=== PATIENT | male | born 1955 | race Caucasian/White ===

== ENCOUNTER → 2016-10-21 | Outpatient (CLI) | payer MEDICAID, OTHER ==
[2016-10-21 10:20] LABS: CHLORIDE,CL 107 mmol/L (98-110); SODIUM,NA 139 mmol/L (136-146)
== END ==
LOC: MW.CHFP 09:15
PROVIDERS: ATTEND Student in an Organized Health Care Education/Training Program
DX: R53.82 Chronic fatigue, unspecified (principal); D72.829 Elevated white blood cell count, unspecified
CPT/HCPCS: 36415; 80048; 84443; 85027

== ENCOUNTER 2017-05-23 16:50 | Emergency (ER) | payer MEDICAID ==
--- NOTE | 2017-05-23 17:13 | EDM.PDOC ---
ED HPI GENERAL MEDICAL PROBLEM - General Chief Complaint: Skin Complaint Stated Complaint: RT FOOT INFECTION Time Seen by Provider: 05/23/17 16:59 Source of Information: Reports: Patient History Limitations: Reports: No Limitations - History of Present Illness INITIAL COMMENTS - FREE TEXT/NARRATIVE: HISTORY AND PHYSICAL: History of present illness: Shouldn't is a 61-year-old male who presents to the emergency room with complaints of redness, swelling and pain at a lesion site to his right lower extremity. He states approximately 2 weeks ago he noticed a small scratch to his right lower extremity. He saw Dr. Jc shaihk on 05/12/2017 and was placed on Clobetsole Cream, to apply twice daily 7 days. The patient states that since that time the small scratch turned into an open sore with redness and swelling around the area. He denies any fever, chills, chest pain, shortness of breath abdominal pain, nausea, vomiting or diarrhea. Has no history of diabetes, neuropathy and denies any numbness or tingling to the lower extremity. Past medical history of hypertension, elevated cholesterol, cardiac stent for a believed MD (patient is unsure if he had a heart attack "or what") Review of systems: As per history of present illness and below otherwise all systems reviewed and negative. Past medical history: As per history of present illness and as reviewed below otherwise noncontributory. Surgical history: As per history of present illness and as reviewed below otherwise noncontributory. Social history: No reported history of drug or alcohol abuse. Family history: As per history of present illness and as reviewed below otherwise noncontributory. Physical exam: Gen.: Well-developed and well-nourished 61-year-old male. Alert and oriented. Appears in no acute distress and is nontoxic appearing. HEENT: Atraumatic, normocephalic, pupils reactive, negative for conjunctival pallor or scleral icterus, mucous membranes moist, throat clear, neck supple, nontender, trachea midline. Lungs: Clear to auscultation, breath sounds equal bilaterally, chest nontender. Heart: S1S2, regular, negative for clicks, rubs, or JVD. Abdomen: Soft, nondistended, nontender. Negative for masses or hepatosplenomegaly. Negative for costovertebral tenderness. Pelvis: Stable nontender. Genitourinary: Deferred. Rectal: Deferred. Extremities: Atraumatic, +2 pitting edema to the right lower extremity, starting at the mid staley down to his foot. He does have a linear sore which has yellow macerated drainage to the top of the measuring approximately 2 cm. Small white blister like satellite lesions noted to the 5 o'clock position. Erythema noted from mid staley down to the top of the foot. This is anterior and is not circumferential. Strong pedal pulse noted. Does appear to have a large patch of psoriasis to the right ankle. +CMS. Neurovascular unremarkable. Neuro: Awake, alert, oriented. Cranial nerves II through XII unremarkable. Cerebellum unremarkable. Motor and sensory unremarkable throughout. Exam nonfocal. Wound culture was obtained and sent to lab. The wound has been outlined with permanent marker to identify the cellulitis border. Signs and symptoms were reviewed with the patient, what to monitor for to prompt him to return to the emergency room. Pharmacies are currently closed. One tablet of Bactrim will be dispensed here in the ER and then a prescription will be sent home with the patient. 1 tab twice daily 10 days. We did talk about follow-up with his primary care provider to make sure that the infection has completely resolved. He voices understanding and is agreeable to plan of care. He denies any further questions at this time Diagnostics: Wound culture Therapeutics: Bactrim DS Impression: Cellulitis Plan: 1. Please stop the Clobetasole cream. Bactrim DS been prescribed for you. 1 tab twice a day 10 days. Use keep the wound clean and dry. 2. As we discussed please monitor for signs of infection. The cellulitis has been outlined with a permanent marker. If the redness extends beyond the created margins, fever, chills, increased pain -please return to the emergency room. At that time he would need IV antibiotics. 3. He may use Tylenol and/or ibuprofen as needed for pain management. Rest and elevate the lower extremity. 4. Follow-up with your primary care provider in the next 1-2 days. Return to the ED as needed and as discussed. Definitive disposition and diagnosis as appropriate pending reevaluation and review of above. Duration: Week(s): Location: Reports: Lower Extremity, Right Right Lower Leg Pain Score (Numeric/FACES): 5 - Related Data Allergies Allergy/AdvReac Type Severity Reaction Status Date / Time No Known Allergies Allergy Verified 12/17/17 17:07 Home Meds: Home Meds Albuterol Sulfate [Proair Hfa] 1 - 2 puff IH ASDIRECTED PRN 03/02/16 [History] Aspirin [Halfprin] 81 mg PO BRK 03/02/16 [History] Budesonide/Formoterol [Symbicort 160-4.5 MCG] 2 puff INH BID 03/02/16 [History] Lisinopril 20 mg PO DAILY 03/02/16 [History] Zolpidem Tartrate [Ambien] 10 mg PO BEDTIME 03/02/16 [History] atorvaSTATin [Lipitor] 20 mg PO BEDTIME 03/02/16 [History] Clopidogrel [Plavix] 1 tab PO DAILY 05/23/17 [History] Isosorbide Mononitrate 20 mg PO DAILY 05/23/17 [History] Metoprolol Succinate [Toprol XL] 25 mg PO DAILY 05/23/17 [History] amLODIPine [Norvasc] 1 tab PO DAILY 05/23/17 [History] Past Medical History HEENT History: Reports: Impaired Vision, Other (See Below) Other HEENT History: rotted teeth Cardiovascular History: Reports: High Cholesterol, Hypertension Respiratory History: Reports: None Gastrointestinal History: Reports: Other (See Below) Other Gastrointestinal History: heartburn occassionally Genitourinary History: Reports: None Musculoskeletal History: Reports: Fracture Other Musculoskeletal History: left wrist, cracked an ankle and left collarbone Neurological History: Reports: None Psychiatric History: Reports: None Endocrine/Metabolic History: Reports: Obesity/BMI 30+ Hematologic History: Reports: None Immunologic History: Reports: None Oncologic (Cancer) History: Reports: None Dermatologic History: Reports: None - Infectious Disease History Infectious Disease History: Reports: Chicken Pox, Measles, Mumps, Pertussis ( Whooping Cough) - Past Surgical History HEENT Surgical History: Reports: Visual Cardiovascular Surgical History: Reports: None Respiratory Surgical History: Reports: None GI Surgical History: Reports: None Male Surgical History: Reports: None Endocrine Surgical History: Reports: None Oncologic Surgical History: Reports: None Dermatological Surgical History: Reports: None Social & Family History - Family History Family Medical History: Noncontributory - Tobacco Use Smoking Status *Q: Former Smoker Years of Tobacco use: 40 Packs/Tins Daily: 2 Used Tobacco, but Quit: Yes Month Tobacco Last Used: 01/06/2016 Second Hand Smoke Exposure: No - Caffeine Use Caffeine Use: Reports: None Other Caffeine Use: usually one cup coffe daily. "takes two days to drink 16 oz pepsi" - Recreational Drug Use Recreational Drug Use: No ED ROS GENERAL - Review of Systems Review Of Systems: ROS reveals no pertinent complaints other than HPI. ED EXAM, SKIN/RASH Exam: See Below (See dictation) Course - Vital Signs Last Recorded V/S: Last Vital Signs Temp 98.9 F 05/23/17 17:08 Pulse 78 05/23/17 17:08 Resp 22 H 05/23/17 17:08 BP 126/93 H 05/23/17 17:08 Pulse Ox 96 05/23/17 17:08 - Orders/Labs/Meds Orders: Active Orders 24 hr Category Date Time Status Communication Order [RC] STAT Care 05/23/17 17:24 Ordered CULTURE WOUND [RM] Stat Lab 05/23/17 17:22 Ordered Sulfamethoxazole/Trimethoprim [Septra DS] Med 05/23/17 17:23 Once 1 tab PO ONETIME ONE Medication Orders Trimethoprim/Sulfamethoxazole (Septra Ds) 1 tab PO ONETIME ONE Stop: 05/23/17 17:24 Meds: Medications Generic Name Dose Route Start Last Admin Trade Name Caden PRN Reason Stop Dose Admin Trimethoprim/Sulfamethoxazole 1 tab 05/23/17 17:23 Septra Ds PO 05/23/17 17:24 ONETIME ONE Departure - Departure Time of Disposition: 17:36 Disposition: Home, Self-Care 01 Clinical Impression: Cellulitis Qualifiers: Site of cellulitis: extremity Site of cellulitis of extremity: lower extremity Laterality: right Qualified Code(s): L03.115 - Cellulitis of right lower limb - Discharge Information Referrals: Jc Robbins MD [Primary Care Provider] - Forms: ED Department Discharge Additional Instructions: My general discharge The following information is given to patients seen in the emergency department who are being discharged to home. This information is to outline your options for follow-up care. We provide all patients seen in our emergency department with a follow-up referral. The need for follow-up, as well as the timing and circumstances, are variable depending upon the specifics of your emergency department visit. If you don't have a primary care physician on staff, we will provide you with a referral. We always advise you to contact your personal physician following an emergency department visit to inform them of the circumstance of the visit and for follow-up with them and/or the need for any referrals to a consulting specialist. The emergency department will also refer you to a specialist when appropriate. This referral assures that you have the opportunity for follow-up care with a specialist. All of these measure are taken in an effort to provide you with optimal care, which includes your follow-up. Under all circumstances we always encourage you to contact your private physician who remains a resource for coordinating your care. When calling for follow-up care, please make the office aware that this follow-up is from your recent emergency room visit. If for any reason you are refused follow-up, please contact the [facility] Emergency Department at and asked to speak to the emergency department charge nurse. [facility] [address] [place] [id number] 1. Please stop the Clobetasole cream. Bactrim DS been prescribed for you. 1 tab twice a day 10 days. Use keep the wound clean and dry. 2. As we discussed please monitor for signs of infection. The cellulitis has been outlined with a permanent marker. If the redness extends beyond the created margins, fever, chills, increased pain -please return to the emergency room. At that time he would need IV antibiotics. 3. You may use Tylenol and/or ibuprofen as needed for pain management. Rest and elevate the lower extremity. 4. Follow-up with your primary care provider, Dr. Robbins, in the next 1-2 days. Return to the ED as needed and as discussed. - My Orders Last 24 Hours: My Active Orders 05/23/17 17:22 CULTURE WOUND [RM] Stat 05/23/17 17:23 Sulfamethoxazole/Trimethoprim [Septra DS] 1 tab PO ONETIME ONE 05/23/17 17:24 Communication Order [RC] STAT - Assessment/Plan Last 24 Hours: My Active Orders 05/23/17 17:22 CULTURE WOUND [RM] Stat 05/23/17 17:23 Sulfamethoxazole/Trimethoprim [Septra DS] 1 tab PO ONETIME ONE 05/23/17 17:24 Communication Order [RC] STAT
[2017-05-23] MEDS ORDERED: Sulfamethoxazole/Trimethoprim 800-160 MG Tab PO ONE (17:23)
[2017-05-23] MEDS ORDERED: Sulfamethoxazole/Trimethoprim 800-160 MG Tab ONE (17:56)
[2017-05-23 18:06] VITALS: BP 138/70
== END 2017-05-23 18:06 | disposition home or self-care (01) ==
LOC: MW.ED 16:50
DX: L03.115 Cellulitis of right lower limb (principal); E78.00 Pure hypercholesterolemia, unspecified; I10 Essential (primary) hypertension; Z79.82 Long term (current) use of aspirin; Z79.899 Other long term (current) drug therapy; Z87.891 Personal history of nicotine dependence
CPT/HCPCS: 87070; 87077; 87186; 99283; A9270; 99284